=== PATIENT | male | born 1935 | race Caucasian/White ===

== ENCOUNTER → 2017-02-22 | Outpatient (CLI) | payer OTHER ==
[~2017-02-22] MED LIST: ATEN50; ATOR20 PO; Aspirin EC81 MG PO; CLOP75 PO
== END | disposition home or self-care (01) ==
LOC: LAB EV 10:40
DX: N39.0 Urinary tract infection, site not specified (principal)
CPT/HCPCS: 87077; 87086; 87186

== ENCOUNTER → 2017-04-17 | Outpatient (CLI) | payer OTHER | END | disposition home or self-care (01) | LOC: LAB SHORT 13:21 → PLD 13:21 | DX: D48.5 Neoplasm of uncertain behavior of skin (principal) | CPT/HCPCS: 88305 ==

== ENCOUNTER 2018-02-15 08:05 | Day surgery (SDC) | payer OTHER ==
[~2018-02-15] VITALS: Ht 175.3 cm; Wt 87.9 kg
--- NOTE | 2018-02-15 09:35 | NUR ---
02/15/18 0935 Ana Paula Diaz RN NOTIFIED DR WALKER OF PREOP BP'S. NO ORDERS AT THIS TIME. PT AWARE OF DELAY IN GOING BACK TO THE OR DUE TO PREVIOUS CASE RUNNING LONGER THAN EXPECTED. PT EXPRESSES UNDERSTANDING. PREOP TEACHING COMPLETED WITH FAMILY AT BEDSIDE.
== END 2018-02-15 11:30 | disposition home or self-care (01) ==
LOC: ORSCSDS 08:05
PROVIDERS: Orthopaedic Surgery
PROC: 01N54ZZ Release Median Nerve, Percutaneous Endoscopic Approach (ICD-10-PCS; principal; 2018-02-15 09:30)
DX: G56.02 Carpal tunnel syndrome, left upper limb (principal); I10 Essential (primary) hypertension; I73.9 Peripheral vascular disease, unspecified; Z86.73 Personal history of transient ischemic attack (TIA), and cerebral infarction without residual deficits; Z79.82 Long term (current) use of aspirin; Z79.899 Other long term (current) drug therapy
CPT/HCPCS: J0690; J2250; J3010; J7120

== ENCOUNTER → 2019-05-20 | Outpatient (CLI) | payer OTHER | END | disposition home or self-care (01) | LOC: LAB EV 13:59 → LAB SHORT 13:59 | DX: R30.9 Painful micturition, unspecified (principal) | CPT/HCPCS: 87077; 87086; 87186 ==

== ENCOUNTER 2022-01-08 08:59 | Inpatient (IN) | payer OTHER ==
[~2022-01-08] VITALS: Ht 175.3 cm; Wt 82.2 kg
[2022-01-08 09:45] LABS: BASOPHILS ABSOLUTE AUTO 0.01 K/mm3 (0.00-0.23); BASOPHILS PERCENT AUTO 0 % (0-2); EOSINOPHILS ABSOLUTE AUTO 0.09 K/mm3 (0.00-0.68); EOSINOPHILS PERCENT AUTO 2 % (0-6); Hematocrit 41.2 % (37.0-53.0); Hemoglobin 13.7 g/dL (13.5-17.5); IMMATURE GRAN ABSOLUTE AUTO 0.01 K/mm3 (0.00-0.10); IMMATURE GRAN PERCENT AUTO 0 % (0-1); LYMPHOCYTES PERCENT AUTO 17 % (21-46); MONOCYTES ABSOLUTE AUTO 0.55 K/mm3 (0.16-1.47); MONOCYTES PERCENT AUTO 10 % (4-13); Mean Corpuscular HGB 31.9 pg (26.0-34.0); Mean Corpuscular HGB Conc 33.3 g/dL (31.5-36.5); Mean Corpuscular Volume 96 fL (80-100); Mean Platelet Volume 9.9 fL (9.1-12.4); NEUTROPHILS ABSOLUTE AUTO 4.14 K/mm3 (1.96-9.15); NEUTROPHILS PERCENT AUTO 71 % (41-73); Platelet Count 169 K/mm3 (150-400); RDW Standard Deviation 42.1 fL (35.1-46.3)
[2022-01-08 10:04] LABS: Albumin, Blood 3.6 g/dL (3.4-5.0); Albumin/Globulin Ratio 1.1 (0.8-1.8); Bun/Creatinine Ratio 30.2 (12.0-20.0); Creatinine, Blood 0.76 mg/dL (0.60-1.20); Globulin, Blood 3.2 g/dL (2.2-4.0); Potassium, Blood 3.8 mmol/L (3.5-5.5); Total Protein, Blood 6.8 g/dL (6.4-8.2)
[2022-01-08 11:40] LABS: Anti-Xa UFH, PHA Monitoring <0.10 IU/mL; International Normalized Ratio 1.09; Prothrombin Time Results 11.4 Sec (9.7-11.5)
[2022-01-08 13:05] LABS: CHOL/HDL RATIO 3.7; Cholesterol 179 mg/dL (50-200); HDL Cholesterol 49 mg/dL (>39); LDL/HDL RATIO 2.3; Low Density Lipoprotein Chol 113 mg/dL (0-110); Triglycerides 86 mg/dL (30-160); Very Low Density Lipoprot Chol 17 mg/dL (6-32)
--- NOTE | 2022-01-08 17:25 | NUR ---
PT ARRIVED IN THE UNIT AT 1510 PT WAS ABLE TO TRANSFER INTO PCU BED SBA. PT IS HERE FOR ONSET OF CHEST PAIN, TROPONIN TRENDS ELEVATED. PT ON HEPARIN GTT AT 15U/KG/HR. ALERT AND ORIENTED X4 PT USUALLY INDEPENDENT AT BASELINE, NO HOME MEDS NO MEDICAL HX. PT ABLE TO ANSWER QUESTIONS APPROPRIATELY, MILDLY [place]. PT DENIES ANY CHEST PAIN SINCE ARRIVAL UNTIL AT THIS TIME. PT STATED HE WAS GIVEN ASPIRIN EN ROUTE. CARDIOLOGY CONSULTED, NO WEB SOLUTIONS ARCHITECT AT THIS TIME, CALLED TO ANSWERING SERVICE FOR CONSULT IN AM. PT RESTING IN BED AT THIS TIME, NO COMPLAINS, CALL LIGHTS IN REACH WILL CONTINUE TO MONITOR
--- NOTE | 2022-01-08 22:50 | NUR ---
ASSUMED CARE, REPORT RECEIVED BY LOGAN MEHTA. PATIENT JUST FINISHED GETTING BACK IN BED FROM USING URINAL. HR IN THE 60'S. HEPRIN GTT INFUSING AT 13 UNITS/KG. DENIES ANY CHEST PAIN AT THIS TIME. WILL CONTINUE TO MONITOR. CALL LIGHT IN REACH.
[2022-01-09 01:45] LABS: Bun/Creatinine Ratio 38.7 (12.0-20.0); Creatinine, Blood 0.72 mg/dL (0.60-1.20); Potassium, Blood 4.1 mmol/L (3.5-5.5)
[2022-01-09 01:55] LABS: BASOPHILS ABSOLUTE AUTO 0.02 K/mm3 (0.00-0.23); BASOPHILS PERCENT AUTO 0 % (0-2); EOSINOPHILS ABSOLUTE AUTO 0.14 K/mm3 (0.00-0.68); EOSINOPHILS PERCENT AUTO 2 % (0-6); Hematocrit 41.2 % (37.0-53.0); Hemoglobin 13.9 g/dL (13.5-17.5); IMMATURE GRAN ABSOLUTE AUTO 0.02 K/mm3 (0.00-0.10); IMMATURE GRAN PERCENT AUTO 0 % (0-1); LYMPHOCYTES ABSOLUTE AUTO 1.34 K/mm3 (0.84-5.20); LYMPHOCYTES PERCENT AUTO 20 % (21-46); MONOCYTES ABSOLUTE AUTO 0.67 K/mm3 (0.16-1.47); MONOCYTES PERCENT AUTO 10 % (4-13); Mean Corpuscular HGB 32.4 pg (26.0-34.0); Mean Corpuscular HGB Conc 33.7 g/dL (31.5-36.5); Mean Corpuscular Volume 96 fL (80-100); Mean Platelet Volume 10.4 fL (9.1-12.4); NEUTROPHILS ABSOLUTE AUTO 4.64 K/mm3 (1.96-9.15); NEUTROPHILS PERCENT AUTO 68 % (41-73); Platelet Count 161 K/mm3 (150-400); RDW Coefficient Variation 12.1 % (11.7-14.2); RDW Standard Deviation 43.1 fL (35.1-46.3); Red Blood Cell Count 4.29 M/mm3 (4.30-5.90); White Blood Cell Count 6.83 K/mm3 (4.00-11.30)
--- NOTE | 2022-01-09 06:07 | NUR ---
SHIFT SUMMARY: PT HAS REMAINED STABLE T/O SHIFT. NO CHEST PAIN OR DISCOMFORT WAS NOTED. SINUS TO SINUS KAUSHIK WITH RATE 50-60'S. TROPONIN INCREASED TO 1466, HEPARIN CONTINUES AT 13 UNITS/KG. VS STABLE. ASYMPTOMAIC. USES CALL LIGHT APPROPRIATLY. WILL REPORT OFF TO DAYSHIFT.
--- NOTE | 2022-01-09 18:26 | NUR ---
PT SUMMARY NO AUCTE CHANGE FOR THE SHIFT. PT REMAINED STABLE DENIES ANY CHEST PAIN/PRESURE, VITALS HAS BEEN STABLE. HRR SR AT 50-70'S, SBP 130'S, SATS ABOVE 95% ON RA, AFEBRILE. PT HAS BEEN AMBULATING TO THE BATHROOM WITH NO ISSUES. STILL NO ROCK CRUSHING MACHINE OPERATOR ON FOR TODAY, PLAN TO KEEP PT NPO AFTER MIDNIGHT FOR POSSIBLE ANGIO IN AM. PT REMAINED ON HEPARIN GTT AT 13U/KG/HR. NO OTHER ISSUES REPORTED FOR THE SHIFT, PT NOW RESTING IN BED, CALL LIGHTS IN REACH WILL REPORT TO ONCOMING SHIFT
--- NOTE | 2022-01-09 19:16 | NUR ---
took over care of pt at 1900, pt on RA, heparin gtt at 13u/kg/hr
[2022-01-10 04:32] LABS: BASOPHILS ABSOLUTE AUTO 0.02 K/mm3 (0.00-0.23); BASOPHILS PERCENT AUTO 0 % (0-2); EOSINOPHILS ABSOLUTE AUTO 0.19 K/mm3 (0.00-0.68); EOSINOPHILS PERCENT AUTO 3 % (0-6); Hematocrit 39.4 % (37.0-53.0); Hemoglobin 13.7 g/dL (13.5-17.5); IMMATURE GRAN ABSOLUTE AUTO 0.02 K/mm3 (0.00-0.10); IMMATURE GRAN PERCENT AUTO 0 % (0-1); LYMPHOCYTES ABSOLUTE AUTO 1.16 K/mm3 (0.84-5.20); LYMPHOCYTES PERCENT AUTO 21 % (21-46); MONOCYTES ABSOLUTE AUTO 0.64 K/mm3 (0.16-1.47); MONOCYTES PERCENT AUTO 11 % (4-13); Mean Corpuscular HGB 32.7 pg (26.0-34.0); Mean Corpuscular HGB Conc 34.8 g/dL (31.5-36.5); Mean Corpuscular Volume 94 fL (80-100); Mean Platelet Volume 10.5 fL (9.1-12.4); NEUTROPHILS ABSOLUTE AUTO 3.57 K/mm3 (1.96-9.15); NEUTROPHILS PERCENT AUTO 64 % (41-73); Platelet Count 150 K/mm3 (150-400); RDW Coefficient Variation 12.1 % (11.7-14.2); RDW Standard Deviation 42.2 fL (35.1-46.3); Red Blood Cell Count 4.19 M/mm3 (4.30-5.90)
--- NOTE | 2022-01-10 05:07 | NUR ---
SHIFT SUMMARY NEURO: WNL LUNGS: WNL GI: WNL : WNL CARDIAC: PT ON TELEMETRY, VITALS WNL THIS SHIFT. NO COMPLAINTS OF CP OR SOB. NSTEMI, HEPARIN GTT RUNNING, ANTI XA 0.48- PHARMACY NOTIFIED. PT SHOWERED AT BEGINNING OF SHIFT WITH ASSISTANCE OF PATIENT ACCOUNTS MANAGER AND HAS REMAINED NPO SINCE MIDNIGHT.
--- NOTE | 2022-01-10 09:32 | NUR ---
REPEATED HAVE CHECKED ON ANDREW, HE IS INDEPENDENT IN ROOM AND IS WITHOUT ANY S/S OF CHEST PAIN, DYSPNEA OR DISCOMFORT. HE IS UNDERSTANDING THAT WE ARE HOLDING MEALS SHOULD HE REQUIRE A PROCEDURE TODAY, AWAITING SPRING WINDER FOR CONSULTATION. PULSES STRONG, HEART TONES REGULAR, MINIMAL ECTOPY. VSS.
--- NOTE | 2022-01-10 11:28 | NUR ---
HAS BEEN IN TO SEE PATIENT, HE IS CONSENTED FOR ANGIOGRAM AND INDICATED PROCEDURES. HE AND HIS SON WERE ALLOWED TO ASK QUESTIONS, BUMPER OPERATOR CAME TO DO RAPID COVID SWAB, HEPARIN GTT STOPPED PER 'S ORDERS. PT CONTINUES TO DENY ANY SYMPTOMS. PT TAKEN TO BUMPER OPERATOR WITH DANIAL
--- NOTE | 2022-01-10 13:48 | NUR ---
PT RETURNED FROM [facility] RENTAL CLERK AND WAS ALERT AND TALKATIVE. HE WANTED TO TALK WITH HIS SON AND DAUGHTER IN [place] ABOUT WHAT IS HAPPENING NEXT. AND DR. OREILLY CAME IN TO DISCUSS WHAT WAS HAPPENING WITH HIS HEART AND HIS RECOMMEN- DATIONS REGARDING SUCH. PT LISTENED AND ASKED APPROPRIATE QUESTIONS. HE WAS GIVEN HIS LUNCH TRAY AND NOW HAS A ROOM FULL OF VISITORS. HE CONTINUES TO DENY ANY PAIN OR DISCOMFORT.
--- NOTE | 2022-01-10 17:13 | NUR ---
DURING REMOVAL OF AIR FROM TR BAND, AT 8ML REMOVAL SLIGHT OOZE NOTED. STOPPED REMOVING AIR, WAITED 30MINUTES. AT 30 MINUTES SITE WITH SLIGHT OOZE NOTED, WAITED ADDITIONAL 30MINUTES. AT 1640 TR BAND FINAL 3ML REMOVED AND HEPARIN GTT RESTARTED AT CURRENT RATE OF 13U/KG/HR VIA RIGHT A/C. PT CONTINUES TO DENY ANY CHEST PAIN OR SHORTNESS OF BREATH. TR BAND AND WRIST STABILIZER REMAIN IN PLACE. TRANSFER TO [place] FOR HIGHER LEVEL OF CARE BEING WORKED OUT AT THIS TIME.
--- NOTE | 2022-01-10 17:59 | NUR ---
PT LOADED ON GURNEY WITH AMBULANCE CREW, HEPARIN GTT @ 13U/KG/HR, CALLED REPORT TO BREANA RN @ [facility]. SON WAS ENROUTE TO BRING HEARING AID BATTERIES AND WAS GOING TO MEET AMBULANCE CREW OUTSIDE.
== END 2022-01-10 17:47 | disposition short-term general hospital (02) | DRG 282 ==
LOC: ER 08:59 → PCU 12:36
PROVIDERS: Physician Assistant; ADMIT Family Medicine
PROC: 3E02340 Introduction of Influenza Vaccine into Muscle, Percutaneous Approach (ICD-10-PCS; 2022-01-08)
PROC: 4A023N7 Measurement of Cardiac Sampling and Pressure, Left Heart, Percutaneous Approach (ICD-10-PCS; principal; 2022-01-10)
PROC: B211YZZ Fluoroscopy of Multiple Coronary Arteries using Other Contrast (ICD-10-PCS; 2022-01-10)
PROC: B240ZZ3 Ultrasonography of Single Coronary Artery, Intravascular (ICD-10-PCS; 2022-01-10)
DX: I21.4 Non-ST elevation (NSTEMI) myocardial infarction (principal); E78.5 Hyperlipidemia, unspecified; R00.1 Bradycardia, unspecified; I77.9 Disorder of arteries and arterioles, unspecified; I10 Essential (primary) hypertension; R94.31 Abnormal electrocardiogram [ECG] [EKG]; I25.10 Atherosclerotic heart disease of native coronary artery without angina pectoris; Z79.82 Long term (current) use of aspirin; Z98.890 Other specified postprocedural states; Z90.49 Acquired absence of other specified parts of digestive tract; Z23 Encounter for immunization; Z79.02 Long term (current) use of antithrombotics/antiplatelets
CPT/HCPCS: 36415; 71045; 76937; 80048; 80053; 80061; 83880; 84484; 85025; 85520; 85610; 85730; 90686; 93005; 93010; 93454; 96365; 96366; 99152; 99153; 99285-25; A9270; C1769; C1887; C1894; C8929; J1644; J2250; J3010; J7030; J7050; Q9957; Q9967

== ENCOUNTER 2022-05-24 14:40 | Inpatient (IN) | payer OTHER ==
[~2022-05-24] VITALS: Ht 175.3 cm; Wt 79.1 kg
[2022-05-24 15:24] LABS: BASOPHILS ABSOLUTE AUTO 0.02 K/mm3 (0.00-0.23); BASOPHILS PERCENT AUTO 0 % (0-2); EOSINOPHILS ABSOLUTE AUTO 0.09 K/mm3 (0.00-0.68); EOSINOPHILS PERCENT AUTO 2 % (0-6); Hematocrit 41.8 % (37.0-53.0); Hemoglobin 13.7 g/dL (13.5-17.5); IMMATURE GRAN ABSOLUTE AUTO 0.01 K/mm3 (0.00-0.10); IMMATURE GRAN PERCENT AUTO 0 % (0-1); LYMPHOCYTES ABSOLUTE AUTO 1.18 K/mm3 (0.84-5.20); LYMPHOCYTES PERCENT AUTO 20 % (21-46); MONOCYTES ABSOLUTE AUTO 0.39 K/mm3 (0.16-1.47); MONOCYTES PERCENT AUTO 7 % (4-13); Mean Corpuscular HGB 30.5 pg (26.0-34.0); Mean Corpuscular HGB Conc 32.8 g/dL (31.5-36.5); Mean Corpuscular Volume 93 fL (80-100); Mean Platelet Volume 10.2 fL (9.1-12.4); NEUTROPHILS ABSOLUTE AUTO 4.23 K/mm3 (1.96-9.15); NEUTROPHILS PERCENT AUTO 72 % (41-73); Platelet Count 195 K/mm3 (150-400); RDW Coefficient Variation 13.2 % (11.7-14.2); RDW Standard Deviation 45.1 fL (35.1-46.3); Red Blood Cell Count 4.49 M/mm3 (4.30-5.90); White Blood Cell Count 5.92 K/mm3 (4.00-11.30)
[2022-05-24 15:52] LABS: Alanine Aminotransfer (ALT/SGP 20 U/L (12-78); Albumin, Blood 3.8 g/dL (3.4-5.0); Albumin/Globulin Ratio 1.2 (0.8-1.8); Alk Phos 106 U/L (50-136); Anion Gap 5 mmol/L (6-16); Aspartate Aminotrans (AST/SGOT 13 U/L (12-37); Bilirubin, Total 0.7 mg/dL (0.1-1.0); Blood Urea Nitrogen 29 mg/dL (8-24); Bun/Creatinine Ratio 37.4 (12.0-20.0); CO2, Blood 26 mmol/L (21-32); Calcium, Blood 9.1 mg/dL (8.5-10.1); Chloride, Blood 109 mmol/L (98-108); Creatinine, Blood 0.78 mg/dL (0.60-1.20); Ethanol (Alcohol), Blood, Med <3 mg/dL; Globulin, Blood 3.1 g/dL (2.2-4.0); Glomerular Filtration Rate 86 (60-); Glucose, Blood 206 mg/dL (70-99); Potassium, Blood 4.3 mmol/L (3.5-5.5); Sodium, Blood 140 mmol/L (136-145); Total Protein, Blood 6.9 g/dL (6.4-8.2)
[2022-05-25 04:20] LABS: Hematocrit 41.1 % (37.0-53.0); Mean Corpuscular HGB 30.8 pg (26.0-34.0); Mean Corpuscular HGB Conc 34.1 g/dL (31.5-36.5); Mean Corpuscular Volume 91 fL (80-100); Mean Platelet Volume 9.9 fL (9.1-12.4); Platelet Count 175 K/mm3 (150-400); RDW Coefficient Variation 13.4 % (11.7-14.2); RDW Standard Deviation 44.7 fL (35.1-46.3); Red Blood Cell Count 4.54 M/mm3 (4.30-5.90); White Blood Cell Count 5.17 K/mm3 (4.00-11.30)
--- NOTE | 2022-05-25 05:06 | NUR ---
SHIFT SUMMARY PT REMAINS A&O X4, VSS, ON RA, GRASP EQUAL BILAT, PERRLA, NO CONFUSION OR MUMLED SPEACH, ABLE TO RECALL CONVERSATIONS AND EXPRESS NEEDS, DENIES PAIN, INDEPENDENT IN ROOM YET ENC TO CALL FOR SBA TO BATHROOM FOR DAFETY, TOLERATING PO INTAKE, VOIDING WNL, RESTING QUIETLY AT THIS TIME, CALL LIGHT IN REACH, WCTM & REPORT TO DAY RN.
[2022-05-25 05:26] LABS: Bun/Creatinine Ratio 37.3 (12.0-20.0); Calcium, Blood 9.2 mg/dL (8.5-10.1); Creatinine, Blood 0.72 mg/dL (0.60-1.20)
[2022-05-25] MEDS ORDERED: PLAVIX75 MG PO (09:58)
[2022-05-25] MEDS ORDERED: PLAVIX75 MG (09:58)
--- NOTE | 2022-05-25 16:02 | NUR ---
Spiritual Care Visit. Pt. is awake in bed and welcomes my visit. Pts. Son and DIL are present. Pt. is pleasant and a lengthy life review takes place. Pt. displays evidence of engagement and awareness of the detials of his prognosis. Rapport is established with Pt. and family. Prayed for Pt. Pt. and family verbalize gratitude for the spiritual care visit.
--- NOTE | 2022-05-25 18:21 | NUR ---
SHIFT SUMMARY; ASSUMED CARE AT 0700. A/A/OX4, SBA IN ROOM. NO SLURRED SPEECH OR FACIAL DROOP NOTED DURING SHIFT. REPOSTIONS SELF IN BED, AMBULATES TO RESTROOM WITHOUT DIFFICULTY. MRI COMPLETED TODAY, FAMILY AT BEDSIDE MOST OF SHIFT. NO ACUTE MEDICAL CHANGES, WILL CONTINUE TO MONITOR AND TREAT UNTIL CHANGE OF SHIFT.
--- NOTE | 2022-05-26 06:02 | NUR ---
SHIFT SUMMARY PT IS A&OX4, CALLS APPROPRAITELY, HAS BEEN IND IN THE ROOM, SP02>95% RA, AND NO COMPLAINTS OF SOB, ANGINA, N/V/D, OR PAIN. NO ACUTE EVENTS AND VS WNL. SEE NOTES FOR ANY UPDATES.
[2022-05-26] MEDS ORDERED: ATOR80 PO (11:43)
[2022-05-26] MEDS ORDERED: CLOP75 PO (11:44)
[2022-05-26] MEDS ORDERED: ASPI81CH PO (11:44)
--- NOTE | 2022-05-26 12:06 | NUR ---
Spiritual Care Visit. Pt. is awake and getting dressed for discharge when he welcomes my visit. Pt. is pleasant, and rapport is quickly re-established. Facilitated a lengthy life review, and prayed with the Pt. Pt. displayed evidence of engagement, focus, and optimism regarding his future prognosis. Pt. verbalized gratitude for the the spiritual care visit.
== END 2022-05-26 13:07 | disposition home or self-care (01) | DRG 66 ==
LOC: ER 14:40 → PCU 19:01
PROVIDERS: Physician Assistant; ADMIT Internal Medicine
DX: I63.232 Cerebral infarction due to unspecified occlusion or stenosis of left carotid arteries (principal); I25.10 Atherosclerotic heart disease of native coronary artery without angina pectoris; R73.9 Hyperglycemia, unspecified; H53.8 Other visual disturbances; I35.0 Nonrheumatic aortic (valve) stenosis; I10 Essential (primary) hypertension; R73.03 Prediabetes; R29.705 NIHSS score 5; E78.5 Hyperlipidemia, unspecified; R10.9 Unspecified abdominal pain; R47.81 Slurred speech; R47.02 Dysphasia; I25.2 Old myocardial infarction; Z95.1 Presence of aortocoronary bypass graft; Z79.82 Long term (current) use of aspirin; Z79.02 Long term (current) use of antithrombotics/antiplatelets; Z90.49 Acquired absence of other specified parts of digestive tract; Z98.890 Other specified postprocedural states
CPT/HCPCS: 36415; 70450; 70496; 70498; 70551; 80048; 80053; 82947; 83036; 85025; 85027; 93005; 93010; 93306; 99285-25; A9270; G0480; J1650; Q9967